=== PATIENT | male | born 1970 | race Caucasian/White ===

== ENCOUNTER 2022-09-28 14:42 | Outpatient (REF) | payer SELFPAY ==
[2022-09-28 21:42] LABS: Hemoglobin A1C 5.3 % (<5.7)
[2022-09-28 21:55] LABS: Anion Gap 8.9 mmol/L (3-11); BUN 14 mg/dL (7-18); CO2 29.1 mmol/L (21.0-32.0); CREATININE 1.1 mg/dL (0.70-1.30); Calcium 9.4 mg/dL (8.5-10.1); Chloride 102 mmol/L (98-107); Estimated GFR 81.78 (mL/min/1.73m2); Glucose 107 mg/dL (74-106); Potassium 4.2 mmol/L (3.5-5.1); Sodium 140 mmol/L (136-145)
== END 2022-09-28 14:43 | disposition home or self-care (01) ==
LOC: NCHCN 14:42
PROVIDERS: Visit Provider Family Medicine
DX: E66.9 Obesity, unspecified (principal)
CPT/HCPCS: 80048; 83036

== ENCOUNTER 2022-12-03 11:29 | Outpatient (REF) | payer BC, SELFPAY ==
[2022-12-03 15:03] LABS: ALT 34 U/L (16-63); AST 26 U/L (15-37); Albumin 4.5 g/dL (3.4-5.0); Alkaline Phosphatase 78 U/L (46-116); Anion Gap 11.5 mmol/L (3-11); BUN 19 mg/dL (7-18); Bilirubin, Total 0.9 mg/dL (0.2-1.0); CO2 25.5 mmol/L (21.0-32.0); CREATININE 1.3 mg/dL (0.70-1.30); Calcium 9.6 mg/dL (8.5-10.1); Chloride 101 mmol/L (98-107); Cholesterol 279 mg/dL (<200); Estimated GFR 66.93 (mL/min/1.73m2); Glucose 126 mg/dL (74-106); HDL Cholesterol 43 mg/dL (40-60); Potassium 3.8 mmol/L (3.5-5.1); Sodium 138 mmol/L (136-145); Total Protein 8.1 g/dL (6.4-8.2); Triglyceride 648 mg/dL (<150)
[2022-12-03 16:10] LABS: LDL CHOLESTEROL 133 mg/dL (<100)
== END 2022-12-03 11:30 | disposition home or self-care (01) ==
LOC: NCHCN 11:29
PROVIDERS: Visit Provider Family Medicine
DX: I10 Essential (primary) hypertension (principal); E66.9 Obesity, unspecified; F10.10 Alcohol abuse, uncomplicated; F17.220 Nicotine dependence, chewing tobacco, uncomplicated; Z00.00 Encounter for general adult medical examination without abnormal findings
CPT/HCPCS: 80053; 80061; 83721

== ENCOUNTER 2022-12-07 16:10 | Outpatient (REF) | payer BC, SELFPAY ==
[2022-12-07 20:54] LABS: Lipase 779 U/L (73-393)
== END 2022-12-07 16:11 | disposition home or self-care (01) ==
LOC: NCHCN 16:10
PROVIDERS: Visit Provider Family Medicine
DX: R10.12 Left upper quadrant pain (principal)
CPT/HCPCS: 83690

== ENCOUNTER 2023-01-25 13:27 | Outpatient (REF) | payer BC, SELFPAY ==
[2023-01-25 15:30] LABS: Glucose 126 mg/dL (74-106)
[2023-01-25 15:39] LABS: Hemoglobin A1C 5.4 % (<5.7)
== END 2023-01-25 13:28 | disposition home or self-care (01) ==
LOC: NCHCN 13:27
PROVIDERS: PCP Family Medicine; Visit Provider Family Medicine
DX: Z00.00 Encounter for general adult medical examination without abnormal findings (principal); R73.01 Impaired fasting glucose
CPT/HCPCS: 82947; 83036